=== PATIENT | female | born 2000 | race Caucasian/White ===

== ENCOUNTER 2022-09-16 20:36 | Emergency (ER) | payer BC ==
[2022-09-16] MEDS ORDERED: NA CHLORIDE 0.9% 1,000 ML ONE (23:12)
[2022-09-17 00:09] LABS: Hematocrit 35.5 % (36.0-45.0); Lymphocytes % 34.7 % (15.3-44.8); MCV 87.6 fL (80-100); RBC Red Blood Cell Count 4.05 M/uL (3.86-4.86)
[2022-09-17 00:22] LABS: Potassium 3.5 mmol/L (3.5-5.1)
--- NOTE | 2022-09-17 02:37 | EDPHYS ---
Physician Documentation [facility] Name: Nikia Salgado Age: 22 yrs Sex: Female : 2000 Arrival Date: 09/16/2022 Time: 20:43 Bed 16 Private MD: ED Physician Sawyer Burnett HPI: 09/17 01:11 This 22 yrs old Female presents to ER via Ambulatory with complaints of herman Vaginal Bleeding, + Preg <12wks. 01:11 The patient presents to the emergency department with vaginal bleeding, that is herman moderate. The estimated gestational age is 7 weeks. course: care: none. Previous pregnancies: in previous pregnancies patient has had . Associated signs and symptoms: The patient has no apparent associated signs or symptoms. The patient has not experienced similar symptoms in the past. 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 - Family history:: not pertinent. ROS: 09/17 01:11 Constitutional: Negative for fever, chills, and weight loss, Eyes: Negative for injury, herman pain, redness, and discharge, ENT: Negative for injury, pain, and discharge, Neck: Negative for injury, pain, and swelling, Cardiovascular: Negative for chest pain, palpitations, and edema, Respiratory: Negative for shortness of breath, cough, wheezing, and pleuritic chest pain, Abdomen/GI: Negative for abdominal pain, nausea, vomiting, diarrhea, and constipation, Back: Negative for injury and pain, MS/Extremity: Negative for injury and deformity, Skin: Negative for injury, rash, and discoloration, Neuro: Negative for headache, weakness, numbness, tingling, and seizure, Psych: Negative for depression, anxiety, suicide ideation, homicidal ideation, and hallucinations, Allergy/Immunology: Negative for hives, rash, and allergies, Endocrine: Negative for neck swelling, polydipsia, polyuria, polyphagia, and marked weight changes, Hematologic/Lymphatic: Negative for swollen nodes, abnormal bleeding, and unusual bruising. : Positive for vaginal bleeding. Exam: 01:11 Constitutional: This is a well developed, well nourished patient who is awake, alert, herman and in no acute distress. Head/Face: Normocephalic, atraumatic. Eyes: Pupils equal round and reactive to light, extra-ocular motions intact. Lids and lashes normal. Conjunctiva and sclera are non-icteric and not injected. Cornea within normal limits. Periorbital areas with no swelling, redness, or edema. ENT: Nares patent. No nasal discharge, no septal abnormalities noted. Tympanic membranes are normal and external auditory canals are clear. Oropharynx with no redness, swelling, or masses, exudates, or evidence of obstruction, uvula midline. Mucous membranes moist. Neck: Trachea midline, no thyromegaly or masses palpated, and no cervical lymphadenopathy. Supple, full range of motion without nuchal rigidity, or vertebral point tenderness. No Meningismus. Chest/axilla: Normal chest wall appearance and motion. Nontender with no deformity. No lesions are appreciated. Cardiovascular: Regular rate and rhythm with a normal S1 and S2. No gallops, murmurs, or rubs. Normal PMI, no JVD. No pulse deficits. Respiratory: Lungs have equal breath sounds bilaterally, clear to auscultation and percussion. No rales, rhonchi or wheezes noted. No increased work of breathing, no retractions or nasal flaring. Abdomen/GI: Soft, non-tender, with normal bowel sounds. No distension or tympany. No guarding or rebound. No evidence of tenderness throughout. Back: No spinal tenderness. No costovertebral tenderness. Full range of motion. Skin: Warm, dry with normal turgor. Normal color with no rashes, no lesions, and no evidence of cellulitis. MS/ Extremity: Pulses equal, no cyanosis. Neurovascular intact. Full, normal range of motion. Neuro: Awake and alert, GCS 15, oriented to person, place, time, and situation. Cranial nerves II-XII grossly intact. Motor strength 5/5 in all extremities. Sensory grossly intact. Cerebellar exam normal. Normal gait. Psych: Awake, alert, with orientation to person, place and time. Behavior, mood, and affect are within normal limits. Vital Signs: 09/16 20:46 BP 130 / 80; Pulse 94; Resp 16; Temp 97.2; Pulse Ox 100% on R/A; Weight 90.72 kg; hb Height 5 ft. 7 in. (170.18 cm); Pain 4/10; 09/17 00:57 BP 116 / 75; Pulse 75; Resp 16; Pulse Ox 99% on 2 lpm NC; jb4 01:30 BP 111 / 57; Pulse 71; Resp 16; Pulse Ox 99% on 2 lpm NC; jb4 02:49 BP 106 / 64; Pulse 79; Resp 19; Pulse Ox 97% on R/A; jb4 09/16 20:46 Body Mass Index 31.32 (90.72 kg, 170.18 cm) hb MDM: 09/16 22:51 Patient medically screened. [facility] 09/17 01:17 Differential diagnosis: threatened Ab, inevitable Ab. Data reviewed: vital signs, [facility] nurses notes, lab test result(s), radiologic studies, CT scan, ultrasound. Data interpreted: surveillance system monitor: rate is 75 beats/min, rhythm is regular, Pulse oximetry: on room air is 99 %. Counseling: I had a detailed discussion with the patient and/or guardian regarding: the historical points, exam findings, and any diagnostic results supporting the discharge/admit diagnosis, lab results, the need for outpatient follow up, for definitive care, 09/16 22:51 Order name: Abo/rh Typing [facility] 09/16 22:51 Order name: Basic Metabolic Panel [facility] 09/16 22:51 Order name: CBC with Diff [facility] 09/16 22:51 Order name: Quantitative Hcg [facility] 09/17 00:11 Order name: CBC with Automated Diff [facility] 09/17 00:22 Order name: Basic Metabolic Panel [facility] 09/16 22:51 Order name: US Transvaginal Ob [facility] 09/16 22:51 Order name: IV Saline Lock; Complete Time: 00:00 [facility] 09/16 22:51 Order name: Labs collected and sent; Complete Time: 00:00 [facility] 09/16 22:51 Order name: NPO; Complete Time: 00:00 [facility] 09/17 00:11 Order name: CT Chest For PE Angio [facility] 09/17 00:22 Order name: HCG, Quantitative [facility] 09/17 00:42 Order name: ABO/RH typing EDMS Administered Medications: 09/16 23:45 Drug: NS 0.9% 1000 ml Route: IV; Rate: 1 bolus; Site: left antecubital; tw5 09/17 01:15 Follow up: Response: No adverse reaction; IV Status: Completed infusion; IV Intake: jb4 1000ml Disposition Summary: 09/17/22 02:36 Discharge Ordered Location: Home herman Problem: new herman Symptoms: have improved herman Condition: Stable herman Diagnosis - Threatened herman - Dyspnea herman Followup: herman - With: Private Physician - When: Today - Reason: Recheck today's complaints, Continuance of care, Re-evaluation by your physician Followup: herman - With: - When: 2 - 3 days - Reason: Recheck today's complaints, Re-evaluation by your physician Discharge Instructions: - Discharge Summary Sheet herman - Care herman - Threatened Miscarriage herman - Vaginal Bleeding During , First Trimester herman - First Trimester of , Kdwg-dy-Morj herman - First Trimester of herman - Threatened Miscarriage, [id number] herman Forms: - Medication Reconciliation Form herman - Thank You Letter herman - Antibiotic Education herman - Prescription Opioid Use herman Signatures: Dispatcher [employer] EDSawyer Choi MD MD cha Baxter, Heather, RN RN hb Wood, Tiffany tw5 Nav Michele RN jb4 Corrections: (The following items were deleted from the chart) 09/16 20:48 20:48 Allergies: No Known Allergies; hb hb
--- NOTE | 2022-09-17 02:37 | ER ---
Nurse's Notes [facility] Name: Nikia Salgado Age: 22 yrs Sex: Female : 2000 Arrival Date: 09/16/2022 Time: 20:43 Bed 16 Private MD: Diagnosis: Threatened ;Dyspnea Presentation: 09/16 20:46 Chief complaint: Bright red vaginal bleeding and abdominal cramping since last night. hb Pt is approx 7 weeks , . Coronavirus screen: At this time, the client does not indicate any symptoms associated with coronavirus-19. Ebola Screen: No symptoms or risks identified at this time. Initial Sepsis Screen: Does the patient meet any 2 criteria? Yes Does the patient have a suspected source of infection? No. Patient's initial sepsis screen is negative. Risk Assessment: Do you want to hurt yourself or someone else? Patient reports no desire to harm self or others. Onset of symptoms was September 15, 2022. 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 - Family history:: not pertinent. Screenin:30 Abuse screen: Denies threats or abuse. Nutritional screening: No deficits noted. jb4 Tuberculosis screening: No symptoms or risk factors identified. Fall Risk None identified. Assessment: 23:19 Reassessment: ultrasound at bedside. tp1 09/17 00:00 Reassessment: Pt reports sudden onset chest pain and pressure and shortness of breath jb4 after administration of IV fluids. Provider notified. Pt placed on left side, with oxygen via nasal cannula per providers instructions. Pt reports immediate relief. 00:22 Reassessment: Pt continues to report chest tightness and pressure with deep breathing, jb4 provider is aware. Pt remains in left side lying position. 00:57 Reassessment: Patient appears in no apparent distress at this time. Patient and/or jb4 family updated on plan of care and expected duration. Pain level reassessed. Patient is alert, oriented x 3, equal unlabored respirations, skin warm/dry/pink. Pt able to ambulate with steady gait to restroom with no s/s of SOB noted or reported. 01:30 Reassessment: Patient appears in no apparent distress at this time. Patient and/or jb4 family updated on plan of care and expected duration. Pain level reassessed. Patient is alert, oriented x 3, equal unlabored respirations, skin warm/dry/pink. 02:48 Reassessment: Patient appears in no apparent distress at this time. Patient and/or jb4 family updated on plan of care and expected duration. Pain level reassessed. Patient is alert, oriented x 3, equal unlabored respirations, skin warm/dry/pink. Denies SOB with deep inspirations. Vital Signs: 09/16 20:46 BP 130 / 80; Pulse 94; Resp 16; Temp 97.2; Pulse Ox 100% on R/A; Weight 90.72 kg; hb Height 5 ft. 7 in. (170.18 cm); Pain 4/10; 09/17 00:57 BP 116 / 75; Pulse 75; Resp 16; Pulse Ox 99% on 2 lpm NC; jb4 01:30 BP 111 / 57; Pulse 71; Resp 16; Pulse Ox 99% on 2 lpm NC; jb4 02:49 BP 106 / 64; Pulse 79; Resp 19; Pulse Ox 97% on R/A; jb4 09/16 20:46 Body Mass Index 31.32 (90.72 kg, 170.18 cm) hb ED Course: 09/16 20:43 Patient arrived in ED. bp1 20:48 Triage completed. hb 20:48 Arm band placed on. hb 22:51 Sawyer Burnett MD is Attending Physician. herman 23:30 Patient has correct armband on for positive identification. Bed in low position. Call jb4 light in reach. Side rails up X 1. Client placed on continuous cardiac and pulse oximetry monitoring. NIBP monitoring applied. 23:45 Inserted saline lock: 20 gauge in left antecubital area, using aseptic technique. Blood tw5 collected. 09/17 00:57 Nav Michele, TOMMY is Primary Nurse. jb4 01:42 Transvaginal Ob In Process Unspecified. EDMS 01:53 CT Chest For PE Angio In Process Unspecified. EDMS 02:36 Renan Raymond MD is Referral Physician. herman 02:50 No provider procedures requiring assistance completed. IV discontinued, intact, jb4 bleeding controlled, No redness/swelling at site. Pressure dressing applied. Administered Medications: 09/16 23:45 Drug: NS 0.9% 1000 ml Route: IV; Rate: 1 bolus; Site: left antecubital; tw5 09/17 01:15 Follow up: Response: No adverse reaction; IV Status: Completed infusion; IV Intake: jb4 1000ml Medication: 02:49 VIS not applicable for this client. jb4 Intake: 01:15 IV: 1000ml; Total: 1000ml. jb4 Outcome: 02:36 Discharge ordered by . herman 02:50 Discharged to home ambulatory, with family. jb4 02:50 Condition: stable 02:50 Discharge instructions given to patient, Instructed on discharge instructions, follow up and referral plans. Demonstrated understanding of instructions, follow-up care. 02:51 Patient left the ED. jb4 Signatures: Dispatcher [employer] EDMS Sawyer Burnett MD MD cha Baxter, Heather, RN RN Nav Michele RN RN jb4 Bina Busch Tiffany tw5 Cynthia Castillo RN RN tp1 Corrections: (The following items were deleted from the chart) 09/16 20:48 20:48 Allergies: No Known Allergies; hb 09/17 02:50 09/16 23:30 Client placed on continuous cardiac and pulse oximetry monitoring. NIBP jb4 monitoring applied. potline monitor on. jb4 09/17 02:51 02:51 Response: No adverse reaction; IV Status: Completed infusion; IV Intake: 1000ml jb4 jb4
[2022-09-17 03:39] VITALS: TEMP 97.2
[2022-09-17 03:56] VITALS: BP 136/85; O2SAT 99
--- NOTE | 2022-09-18 16:15 | RAD REPORT ---
EXAM DESCRIPTION: US - Transvaginal OB - 09/16/2022 11:31 pm CLINICAL HISTORY: 22 years Female, ABD CRAMPING, TECHNIQUE: Real-time transvaginal sonographic imaging of the pelvis was performed. COMPARISON: None. FINDINGS: UTERUS: Uterus measures 9.2 x 4.7 x 6.4 cm. No focal myoma. ENDOMETRIUM: Within the fundal aspect of the endometrial cavity is a small anechoic structure measuri ng 3 mm which cannot be further characterize. No yolk sac or pole. Endometrium measures 12 mm i n thickness. No endometrial free fluid. OVARIES: Right ovary is within normal limits measuring 3.3 x 1.9 x 2.6 cm. Nonvisualization left ovar y in part secondary to overlying bowel gas. Normal color Doppler flow to the right ovary with normal appearing arterial and venous waveforms. ADNEXA: No adnexal mass or abnormality. FREE FLUID: No free fluid in the pelvic cul-de-sac. IMPRESSION: 1. A tiny endometrial cavity anechoic structure measuring 3 mm which may represent varinder y early IUP. Differential considerations include failed IUP versus evolving ectopic . Correl ation with serial beta hCG levels and follow-up pelvic ultrasound is recommended. 2. Nonvisualization left ovary. Electronically signed by: Adolph Handy MD 09/17/2022 12:28 AM CDT Due to temporary technical issues with the PACS/Fluency reporting system, reports are being signed by the in house radiologists without review as a courtesy to insure prompt reporting. The interpreting radiologist is fully responsible for the content of the report.
--- NOTE | 2022-09-18 16:17 | RAD REPORT ---
EXAM DESCRIPTION: CT - Chest For Pe Angio - 09/17/2022 12:59 am CLINICAL HISTORY: 22 years, Female, cp COMPARISON: None TECHNIQUE: Multiple transaxial tomograms of the chest were obtained from the lung apices through the lung bases utilizing 2 mm slice thickness at 2 mm interval reconstruction after the administration o f large bolus of IV contrast at a rate of 4.0 cc per second for complete opacification of the pulmona ry arteries. Subsequent 3-D maximum intensity projection images were generated in the coronal and sagittal plane f or review. This exam was performed according to our departmental dose-optimization protocol, which includes auto mated exposure control, adjustment of the mA and/or kV according to patient size and/or use of iterat lesly reconstruction technique. FINDINGS: The lungs parenchyma demonstrate to be clear. No masses, nodules and/or consolidations are identified. The trachea mainstem bronchus demonstrate to be normal. There is no significant pericardial or pleura l effusions. The thoracic aorta demonstrate to be unremarkable. The heart is normal in size. No evidence for right ventricular strain. There are no significant coronary artery calcifications. There is very minimal residual thymic tissue on image 73. There is no significant mediastinal and/or hilar lymphadenopathy. The axillary regions demonstrate to be clear. Pulmonary arteries demonstrate to be normal, no intraluminal defect are seen that would suggest pulmo nary embolus. The bone windows demonstrate no significant skeletal lesions. The visualized portions of the upper abdomen demonstrate to be unremarkable. IMPRESSION: No CT evidence for pulmonary embolus. Unremarkable CT scan of the chest with contrast. Electronically signed by: Bayron Dee MD 09/17/2022 1:33 AM CDT Due to temporary technical issues with the PACS/Fluency reporting system, reports are being signed by the in house radiologists without review as a courtesy to insure prompt reporting. The interpreting radiologist is fully responsible for the content of the report.
== END 2022-09-17 02:51 | disposition home or self-care (01) ==
LOC: ER 20:36
DX: O20.0 Threatened abortion (principal); R06.00 Dyspnea, unspecified; Z88.0 Allergy status to penicillin
CPT/HCPCS: 85025; 80048; 36415; 86900; 86901; 84702; 71275; 76817; 96360; 99284; Q9967; J7030